=== PATIENT | male | born 1945 | race Caucasian/White ===

== ENCOUNTER 2017-04-11 13:22 | Emergency (ER) | payer MEDICARE, OTHER ==
[~2017-04-11] VITALS: Ht 177.8 cm; Wt 63.5 kg
[~2017-04-11 13:22] MED LIST: ACET500 PO; AMOX875 PO; AZIT500 PO; FURO20 PO; GABA100 PO; GAVILAX17 GM PO; HALO2 PO; HYDR1TAB94 PO; IBUP400 PO; IPRAIS; PRED20 PO; Ventolin/Prove6.7 GM
== END 2017-04-11 16:00 | disposition home or self-care (01) ==
LOC: ER 13:22
DX: S61.411A Laceration without foreign body of right hand, initial encounter (principal); J44.9 Chronic obstructive pulmonary disease, unspecified; I48.91 Unspecified atrial fibrillation; F17.210 Nicotine dependence, cigarettes, uncomplicated; Z79.899 Other long term (current) drug therapy; Z79.52 Long term (current) use of systemic steroids; W23.0XXA Caught, crushed, jammed, or pinched between moving objects, initial encounter
CPT/HCPCS: 99283